=== PATIENT | male | born 1970 | race African-American/Black ===

== ENCOUNTER 2018-10-26 18:29 | Inpatient (IN) | payer OTHER ==
[2018-10-26] MEDS ORDERED: NS + KCL 40 MEQ 1,000 ML IV (18:36)
[2018-10-26] MEDS ORDERED: D10/0.45% NACL + KCL 40 MEQ 1,000 ML IV (18:36)
[2018-10-26] MEDS ORDERED: DEXTROSE 10%/0.45% NACL 1,000 ML IV (18:36)
[2018-10-26] MEDS ORDERED: SOD CHLORIDE 0.9% 1,000 ML IV (18:36)
[2018-10-26] MEDS: ONDANSETRON 4 MG INJ IV (18:40)
[2018-10-26 18:41] LABS: AADO2 Arterial 30.3 mmHg (7.0-24.0); Allen Test ACCEPTAB; Arterial Base Excess -16.6 mmol/L (-3.0-3); Arterial Blood Gas Oxygen Sat 97.9 mmHG (95.0-98.0); Arterial COHb 0.5 % (0.0-3.0); Arterial Fraction of Oxyhgb 97.1 % (93.0-99.0); Arterial HCO3 6.5 mmol/L (22.0-26.0); Arterial MetHb 0.3 % (0.0-1.5); MODE ROOM AIR; Site Left Radial
[2018-10-26 18:42] LABS: ADD MAN DIFF? NO
[2018-10-26 18:44] LABS: ABNORMAL IP MESSAGE 1; BASOPHILS % 0.3 % (0.0-2.0); EOSINOPHILS # 0.1 10^3/ul (0.0-0.5); HEMOGLOBIN 13.8 g/dl (14.0-18.0); LYMPHOCYTES # 0.3 10^3/ul (0.8-2.9); LYMPHOCYTES % 2.3 % (15.0-51.0); MEAN CORPUSCULAR HEMOGLOBIN 30.1 pg (29.0-33.0); MEAN CORPUSCULAR HGB CONC 33.7 g/dl (32.0-37.0); MEAN CORPUSCULAR VOLUME 89.5 fl (82.0-101.0); MEAN PLATELET VOLUME 10.4 fl (7.4-10.4); MONOCYTE # 1.1 10^3/ul (0.3-0.9); MONOCYTES % 7.8 % (0.0-11.0); NEUTROPHILS % 87.7 % (39.0-77.0); PLATELET COUNT 208 10^3/UL (140-415); POSITIVE DIFF @See below; RED BLOOD COUNT 4.58 10^6/ul (4.70-6.10); RED CELL DISTRIBUTION WIDTH 11.8 % (11.5-14.5)
[2018-10-26 18:44] LABS: WHITE BLOOD COUNT 13.7 10^3/ul (4.8-10.8)
[2018-10-26] MEDS ORDERED: DEXTROSE 50% 50 ML SYRINGE IV ×2 (19:00)
[2018-10-26 19:02] LABS: ETHANOL < 10.0 mg/dl (0-0)
[2018-10-26 19:03] LABS: ALANINE AMINOTRANSFERASE 17 IU/L (13-69); ALBUMIN 3.8 g/dl (3.3-4.9); ALBUMIN/GLOBULIN RATIO 1.02; ALKALINE PHOSPHATASE 122 IU/L (42-121); ANION GAP 27 (5-13); ASPARTATE AMINO TRANSFERASE 12 IU/L (15-46); BILIRUBIN,INDIRECT 0.2 mg/dl (0-1.1); BILIRUBIN,TOTAL 0.2 mg/dl (0.2-1.3); BLOOD UREA NITROGEN 43 mg/dl (7-20); CALCIUM 9.2 mg/dl (8.4-10.2); CHLORIDE 91 mmol/L (97-110); CREATININE 2.82 mg/dl (0.61-1.24); Estimated GFR 30 mL/min (>60); PHOSPHORUS 6.4 mg/dl (2.5-4.9); SODIUM 127 mmol/L (135-144); TOTAL PROTEIN 7.5 g/dl (6.1-8.1)
[2018-10-26] MEDS: SOD CHLORIDE 0.9% 800 ML IV (19:03)
[2018-10-26] MEDS: LACTATED RINGER'S 800 ML IV (19:03)
[2018-10-26 19:04] LABS: INR 1.01; PROTIME 13.4 Sec (11.9-14.9)
[2018-10-26 19:05] LABS: PARTIAL THROMBOPLASTIN TIME 29.9 Sec (23.0-35.0)
[2018-10-26 19:07] LABS: CARBON DIOXIDE 9 mmol/L (21-31)
[2018-10-26 19:08] LABS: GLUCOSE 560 mg/dl (70-220)
[2018-10-26 19:13] LABS: TROPONIN-I < 0.012 ng/ml (0.000-0.120)
[2018-10-26] MEDS: NS + KCL 30 MEQ 1,000 ML IV (19:52)
[2018-10-26] MEDS: D10/0.45% NACL + KCL 30 MEQ 1,000 ML IV (19:52)
[2018-10-26] MEDS: INSULIN REGULAR, HUMAN 100 UNIT in SOD CHLORIDE 0.9% 100 ML IV (19:57)
[2018-10-26 20:35] LABS: MODE ROOM AIR; MetHgb Venous 0.4 %; Sample Type Blood venous; Site VENOUS LINE; Venous COHb 0.6 %; Venous Fraction OxyHgb 74.6 %; Venous Oxygen Sat 75.4 mmHG (55.0-75.0); Venous Total Hemglobin 14.1 g/dl
[2018-10-26] MEDS ORDERED: ONDANSETRON 4 MG INJ IV (21:00)
[2018-10-26] MEDS ORDERED: ALBUTEROL 0.083% (NEB) 2.5 MG/3 ML AMP NEB (21:00)
[2018-10-26] MEDS ORDERED: IPRATROPIUM (NEB) 0.5 MG/2.5 ML AMP NEB (21:00)
[2018-10-26] MEDS ORDERED: BISACODYL (EC) 5 MG TAB PO (21:00)
[2018-10-26] MEDS ORDERED: DOCUSATE SODIUM 100 MG CAP PO (21:00)
[2018-10-26] MEDS: FAMOTIDINE 20 MG INJ IV (21:34)
[2018-10-26] MEDS: HEPARIN 5,000 UNIT/1 ML VIAL SC (21:35)
[2018-10-26 22:51] LABS: CREATINE KINASE 54 IU/L (23-200)
[2018-10-26 22:52] LABS: PHOSPHORUS 4.6 mg/dl (2.5-4.9)
[2018-10-26 22:52] LABS: ANION GAP 15 (5-13); BLOOD UREA NITROGEN 41 mg/dl (7-20); CALCIUM 8.8 mg/dl (8.4-10.2); CARBON DIOXIDE 16 mmol/L (21-31); CHLORIDE 101 mmol/L (97-110); CREATININE 2.19 mg/dl (0.61-1.24); Estimated GFR 40 mL/min (>60); GLUCOSE 320 mg/dl (70-220); MAGNESIUM 1.9 mg/dl (1.7-2.5); POTASSIUM 4.2 mmol/L (3.5-5.1); SODIUM 132 mmol/L (135-144)
[2018-10-26 23:09] LABS: ADD UMIC YES; UR ASCORBIC ACID NEGATIVE (NEGATIVE); UR BILIRUBIN (Dip) NEGATIVE (NEGATIVE); UR BLOOD (Dip) 2+ mg/dL (NEGATIVE); UR CLARITY CLEAR (CLEAR); UR COLOR STRAW (YELLOW); UR GLUCOSE (Dip) 3+ mg/dL (NEGATIVE); UR KETONES (Dip) 1+ mg/dL (NEGATIVE); UR LEUKOCYTE ESTERASE (Dip) NEGATIVE Leu/ul (NEGATIVE); UR NITRITE (Dip) NEGATIVE (NEGATIVE); UR RBC 1 /HPF (0-5); UR TOTAL PROTEIN (Dip) NEGATIVE (NEGATIVE); UR UROBILINOGEN (Dip) NEGATIVE (NEGATIVE); UR WBC 1 /HPF (0-5)
[2018-10-26 23:10] LABS: SODIUM,URINE RANDOM 22 mmol/L (30-90)
[2018-10-26 23:21] LABS: AMPHETAMINE/METHAMPHETAMINE Positive (NEGATIVE); BARBITURATES Negative (NEGATIVE); BENZODIAZEPINES Negative (NEGATIVE); CANNABINOIDS Negative (NEGATIVE); COCAINE Negative (NEGATIVE); OPIATES Negative (NEGATIVE)
[2018-10-26] MEDS: LORAZEPAM 2 MG INJ IV (23:59)
[2018-10-27] MEDS: METOPROLOL 5 MG INJ IV (00:41)
[2018-10-27 03:01] LABS: ANION GAP 5 (5-13); BLOOD UREA NITROGEN 37 mg/dl (7-20); CALCIUM 8.4 mg/dl (8.4-10.2); CARBON DIOXIDE 20 mmol/L (21-31); CHLORIDE 112 mmol/L (97-110); CREATININE 1.67 mg/dl (0.61-1.24); Estimated GFR 54 mL/min (>60); GLUCOSE 124 mg/dl (70-220); MAGNESIUM 1.6 mg/dl (1.7-2.5); PHOSPHORUS 1.7 mg/dl (2.5-4.9); POTASSIUM 4.5 mmol/L (3.5-5.1); SODIUM 137 mmol/L (135-144)
[2018-10-27] MEDS ORDERED: VANCOMYCIN IV PER PHARMACY XX (03:30)
[2018-10-27] MEDS: DOXYCYCLINE 100 MG in SOD CHLORIDE 0.9% 250 ML IVPB ×2 (03:49→14:47)
[2018-10-27] MEDS: MAGNESIUM SULFATE 2 GM/50 ML 50 ML IVPB (04:51)
[2018-10-27] MEDS: SOD CHLORIDE 0.9% 1,000 ML IV ×2 (04:55→18:16)
[2018-10-27] MEDS: VANCOMYCIN 1 GM in 250 ML IVPB (05:22)
[2018-10-27] MEDS: HEPARIN 5,000 UNIT/1 ML VIAL SC ×3 (05:23→21:35)
[2018-10-27] MEDS: D10/0.45% NACL + KCL 30 MEQ 1,000 ML IV ×2 (05:38→08:16)
[2018-10-27 05:42] LABS: ADD UMIC YES; UR ASCORBIC ACID NEGATIVE (NEGATIVE); UR BILIRUBIN (Dip) NEGATIVE (NEGATIVE); UR BLOOD (Dip) 1+ mg/dL (NEGATIVE); UR CLARITY CLEAR (CLEAR); UR COLOR YELLOW (YELLOW); UR GLUCOSE (Dip) 3+ mg/dL (NEGATIVE); UR KETONES (Dip) 1+ mg/dL (NEGATIVE); UR LEUKOCYTE ESTERASE (Dip) NEGATIVE Leu/ul (NEGATIVE); UR MUCUS FEW /HPF (NONE SEEN); UR NITRITE (Dip) NEGATIVE (NEGATIVE); UR RBC 3 /HPF (0-5); UR TOTAL PROTEIN (Dip) 1+ mg/dl (NEGATIVE); UR UROBILINOGEN (Dip) NEGATIVE (NEGATIVE); UR WBC 0 /HPF (0-5)
[2018-10-27 06:25] LABS: LIPASE 16 U/L (23-300)
[2018-10-27 07:02] LABS: MODE NASAL CANNULA; MetHgb Venous 0.2 %; Sample Type Blood venous; Site VENOUS LINE; Venous COHb 0.2 %; Venous Fraction OxyHgb 50.2 %; Venous Oxygen Sat 50.4 mmHG (55.0-75.0); Venous Total Hemglobin 12.4 g/dl
[2018-10-27 07:25] LABS: ANION GAP 4 (5-13); BLOOD UREA NITROGEN 31 mg/dl (7-20); CALCIUM 7.5 mg/dl (8.4-10.2); CARBON DIOXIDE 18 mmol/L (21-31); CHLORIDE 112 mmol/L (97-110); CREATININE 1.48 mg/dl (0.61-1.24); Estimated GFR > 60 mL/min (>60); GLUCOSE 393 mg/dl (70-220); PHOSPHORUS 1.8 mg/dl (2.5-4.9); POTASSIUM 5.2 mmol/L (3.5-5.1); SODIUM 134 mmol/L (135-144)
[2018-10-27] MEDS: NS + KCL 30 MEQ 1,000 ML IV (08:15)
[2018-10-27] MEDS: INSULIN REGULAR, HUMAN 100 UNIT in SOD CHLORIDE 0.9% 100 ML IV (08:51)
[2018-10-27] MEDS ORDERED: DEXTROSE 50% 50 ML SYRINGE IV ×2 (09:00)
[2018-10-27] MEDS: INSULIN HUMAN REGULAR 100 UNIT in SOD CHLORIDE 0.9% 99 ML IV (09:31)
[2018-10-27] MEDS: ACCU-CHEK XX ×14 (10:00→22:45)
[2018-10-27 10:16] LABS: ANION GAP 3 (5-13); BLOOD UREA NITROGEN 28 mg/dl (7-20); CALCIUM 7.9 mg/dl (8.4-10.2); CARBON DIOXIDE 17 mmol/L (21-31); CHLORIDE 114 mmol/L (97-110); CREATININE 1.51 mg/dl (0.61-1.24); Estimated GFR > 60 mL/min (>60); GLUCOSE 207 mg/dl (70-220); PHOSPHORUS 1.2 mg/dl (2.5-4.9); POTASSIUM 4.4 mmol/L (3.5-5.1); SODIUM 134 mmol/L (135-144)
[2018-10-27] MEDS: LACTATED RINGER'S 500 ML IV (12:52)
[2018-10-27 13:40] LABS: HEPATITIS B SURFACE ANTIGEN NEGATIVE (NEGATIVE)
[2018-10-27 13:40] LABS: THYROID STIMULATING HORMONE 0.463 MIU/L (0.465-4.680)
[2018-10-27 13:57] LABS: HEPATITIS C VIRAL ANTIBODY NEGATIVE (NEGATIVE)
[2018-10-27 14:20] LABS: ANION GAP 1 (5-13); BLOOD UREA NITROGEN 26 mg/dl (7-20); CALCIUM 7.8 mg/dl (8.4-10.2); CARBON DIOXIDE 18 mmol/L (21-31); CHLORIDE 115 mmol/L (97-110); CREATININE 1.45 mg/dl (0.61-1.24); Estimated GFR > 60 mL/min (>60); GLUCOSE 118 mg/dl (70-220); PHOSPHORUS 1.7 mg/dl (2.5-4.9); POTASSIUM 4.4 mmol/L (3.5-5.1); SODIUM 134 mmol/L (135-144)
[2018-10-27 15:43] LABS: RAPID PLASMA REAGIN REACTIVE (NR)
[2018-10-27 19:32] LABS: ANION GAP 5 (5-13); BLOOD UREA NITROGEN 25 mg/dl (7-20); CALCIUM 7.9 mg/dl (8.4-10.2); CARBON DIOXIDE 17 mmol/L (21-31); CHLORIDE 116 mmol/L (97-110); CREATININE 1.49 mg/dl (0.61-1.24); Estimated GFR > 60 mL/min (>60); GLUCOSE 139 mg/dl (70-220); PHOSPHORUS 2.4 mg/dl (2.5-4.9); POTASSIUM 4.7 mmol/L (3.5-5.1); SODIUM 138 mmol/L (135-144)
[2018-10-27] MEDS ORDERED: PENICILLIN G BENZ 2.4 MIL UNIT SYG IM (20:30)
[2018-10-27] MEDS: FAMOTIDINE 20 MG INJ IV (21:23)
[2018-10-27 22:17] LABS: HIV 1&2 ANTIBODY NEGATIVE (NEGATIVE)
[2018-10-28 00:09] LABS: ANION GAP 5 (5-13); BLOOD UREA NITROGEN 24 mg/dl (7-20); CALCIUM 8.1 mg/dl (8.4-10.2); CARBON DIOXIDE 18 mmol/L (21-31); CHLORIDE 116 mmol/L (97-110); CREATININE 1.44 mg/dl (0.61-1.24); Estimated GFR > 60 mL/min (>60); GLUCOSE 107 mg/dl (70-220); MAGNESIUM 1.9 mg/dl (1.7-2.5); PHOSPHORUS 2.3 mg/dl (2.5-4.9); POTASSIUM 4.3 mmol/L (3.5-5.1); SODIUM 139 mmol/L (135-144)
[2018-10-28] MEDS: ACCU-CHEK XX ×15 (00:18→21:30)
[2018-10-28] MEDS: SOD CHLORIDE 0.9% 1,000 ML IV ×4 (03:00→22:45)
[2018-10-28] MEDS: DOXYCYCLINE 100 MG in SOD CHLORIDE 0.9% 250 ML IVPB (03:25)
[2018-10-28] MEDS ORDERED: VANCOMYCIN 750 MG (PMX) 250 ML IVPB (04:00)
[2018-10-28 06:21] LABS: ADD MAN DIFF? NO
[2018-10-28 06:26] LABS: ABNORMAL IP MESSAGE 1; BASOPHILS % 0.3 % (0.0-2.0); EOSINOPHILS # 0.4 10^3/ul (0.0-0.5); EOSINOPHILS % 3.2 % (0.0-7.0); HEMATOCRIT 34.7 % (42.0-52.0); HEMOGLOBIN 11.7 g/dl (14.0-18.0); LYMPHOCYTES # 0.5 10^3/ul (0.8-2.9); LYMPHOCYTES % 3.9 % (15.0-51.0); MEAN CORPUSCULAR HEMOGLOBIN 30.1 pg (29.0-33.0); MEAN CORPUSCULAR HGB CONC 33.7 g/dl (32.0-37.0); MEAN CORPUSCULAR VOLUME 89.2 fl (82.0-101.0); MEAN PLATELET VOLUME 10.7 fl (7.4-10.4); MONOCYTE # 0.9 10^3/ul (0.3-0.9); MONOCYTES % 7.9 % (0.0-11.0); NEUTROPHIL # 9.8 10^3/ul (1.6-7.5); NEUTROPHILS % 83.9 % (39.0-77.0); PLATELET COUNT 174 10^3/UL (140-415); POSITIVE DIFF @See below; RED BLOOD COUNT 3.89 10^6/ul (4.70-6.10); RED CELL DISTRIBUTION WIDTH 12.3 % (11.5-14.5)
[2018-10-28 06:26] LABS: WHITE BLOOD COUNT 11.7 10^3/ul (4.8-10.8)
[2018-10-28] MEDS: HEPARIN 5,000 UNIT/1 ML VIAL SC ×3 (06:27→21:01)
[2018-10-28 06:55] LABS: PHOSPHORUS 2.4 mg/dl (2.5-4.9)
[2018-10-28 06:55] LABS: MAGNESIUM 1.8 mg/dl (1.7-2.5)
[2018-10-28 07:10] LABS: ANION GAP 4 (5-13); BLOOD UREA NITROGEN 22 mg/dl (7-20); CALCIUM 8.1 mg/dl (8.4-10.2); CARBON DIOXIDE 19 mmol/L (21-31); CHLORIDE 118 mmol/L (97-110); Estimated GFR > 60 mL/min (>60); GLUCOSE 75 mg/dl (70-220); POTASSIUM 4.3 mmol/L (3.5-5.1); SODIUM 141 mmol/L (135-144)
[2018-10-28] MEDS ORDERED: GLUCOSE GEL 15 GRAM TUBE BUCCAL (09:30)
[2018-10-28] MEDS ORDERED: GLUCOSE GEL 15 GRAM TUBE PO (09:30)
[2018-10-28] MEDS ORDERED: GLUCAGON 1 MG INJ IM (09:30)
[2018-10-28] MEDS ORDERED: DEXTROSE 50% 50 ML SYRINGE IV ×2 (09:30)
[2018-10-28 09:45] LABS: BAND NEUTROPHILS #M 4.7 10^3/ul (0.0-0.6); BAND NEUTROPHILS % (M) 41 % (0-4); BURR CELLS 2+ (0-0); EOSINOPHILS % (M) 3 % (0-7); LYMPHOCYTES #M 1.1 10^3/ul (0.8-2.9); LYMPHOCYTES % (M) 10 % (15-51); METAMYELOCYTES #M 0.4 10^3/ul (0.0-0.0); METAMYELOCYTES %M 4 % (0-0); MONOCYTE #M 0.3 10^3/ul (0.3-0.9); MONOCYTES % (M) 3 % (0-11); PLATELET ESTIMATE NORMAL; POIKILOCYTOSIS 2+ (0-0); SEG NEUT #M 5.1 10^3/ul (1.6-7.5); SEGMENTED NEUTROPHILS (M) % 39 % (39-77); SMUDGE%M 11 % (0-0)
[2018-10-28] MEDS: INSULIN GLARGINE [LANTus] (100 UNITS/ML) SYG SC ×2 (11:22→17:11)
[2018-10-28] MEDS: INSULIN ASPART [NOVOLOG] 3 ML PEN SC ×4 (11:23→21:31)
[2018-10-28] MEDS: SODIUM PHOSPHATE 15 MMOL in SOD CHLORIDE 0.9% 250 ML IVPB (14:08)
[2018-10-28 16:54] LABS: RAPID PLASMA REAGIN REACTIVE (NR)
[2018-10-28] MEDS: CREON (12k-38k-60k) 1 CAP PO (17:51)
[2018-10-28] MEDS: FAMOTIDINE 20 MG INJ IV (20:55)
[2018-10-28] MEDS: ACETAMINOPHEN 650MG/20.3ML CUP PO (21:10)
[2018-10-28 23:40] LABS: ANION GAP 2 (5-13); BLOOD UREA NITROGEN 24 mg/dl (7-20); CALCIUM 7.7 mg/dl (8.4-10.2); CARBON DIOXIDE 18 mmol/L (21-31); CHLORIDE 113 mmol/L (97-110); CREATININE 1.23 mg/dl (0.61-1.24); Estimated GFR > 60 mL/min (>60); GLUCOSE 347 mg/dl (70-220); POTASSIUM 4.2 mmol/L (3.5-5.1); SODIUM 133 mmol/L (135-144)
[2018-10-29] MEDS: INSULIN ASPART [NOVOLOG] 3 ML PEN SC ×11 (00:31→21:46)
[2018-10-29] MEDS: INSULIN GLARGINE [LANTus] (100 UNITS/ML) SYG SC ×4 (00:32→21:04)
[2018-10-29] MEDS: morphine 2 MG INJ IV ×6 (01:51→21:45)
[2018-10-29] MEDS: ACCU-CHEK XX ×2 (02:00→21:41)
[2018-10-29] MEDS: ACETAMINOPHEN 650MG/20.3ML CUP PO (03:55)
[2018-10-29 05:21] LABS: ADD MAN DIFF? NO
[2018-10-29] MEDS: HEPARIN 5,000 UNIT/1 ML VIAL SC ×3 (05:23→21:03)
[2018-10-29 05:29] LABS: BASOPHILS % 0.3 % (0.0-2.0); EOSINOPHILS # 0.5 10^3/ul (0.0-0.5); EOSINOPHILS % 4.4 % (0.0-7.0); HEMATOCRIT 30.5 % (42.0-52.0); HEMOGLOBIN 10.2 g/dl (14.0-18.0); LYMPHOCYTES # 0.9 10^3/ul (0.8-2.9); MEAN CORPUSCULAR HEMOGLOBIN 29.8 pg (29.0-33.0); MEAN CORPUSCULAR HGB CONC 33.4 g/dl (32.0-37.0); MEAN CORPUSCULAR VOLUME 89.2 fl (82.0-101.0); MEAN PLATELET VOLUME 10.6 fl (7.4-10.4); MONOCYTES % 9.3 % (0.0-11.0); NEUTROPHIL # 8.5 10^3/ul (1.6-7.5); NEUTROPHILS % 77.3 % (39.0-77.0); PLATELET COUNT 156 10^3/UL (140-415); POSITIVE DIFF @See below; RED BLOOD COUNT 3.42 10^6/ul (4.70-6.10); RED CELL DISTRIBUTION WIDTH 12.5 % (11.5-14.5)
[2018-10-29 05:59] LABS: ANION GAP 4 (5-13); BLOOD UREA NITROGEN 23 mg/dl (7-20); CALCIUM 7.7 mg/dl (8.4-10.2); CARBON DIOXIDE 18 mmol/L (21-31); CHLORIDE 111 mmol/L (97-110); CREATININE 1.18 mg/dl (0.61-1.24); Estimated GFR > 60 mL/min (>60); GLUCOSE 360 mg/dl (70-220); MAGNESIUM 1.5 mg/dl (1.7-2.5); POTASSIUM 4.3 mmol/L (3.5-5.1); SODIUM 133 mmol/L (135-144)
[2018-10-29] MEDS: SOD CHLORIDE 0.9% 1,000 ML IV ×2 (06:43→20:35)
[2018-10-29] MEDS: CREON (12k-38k-60k) 1 CAP PO ×3 (08:00→17:10)
[2018-10-29 09:37] LABS: BAND NEUTROPHILS % (M) 37 % (0-4); BASOPHIL #M 0.1 10^3/ul (0.0-0.0); BASOPHILS % (M) 1 % (0-2); BURR CELLS 2+ (0-0); EOSINOPHILS % (M) 4 % (0-7); LYMPHOCYTES #M 0.4 10^3/ul (0.8-2.9); LYMPHOCYTES % (M) 4 % (15-51); MONOCYTE #M 0.7 10^3/ul (0.3-0.9); MONOCYTES % (M) 7 % (0-11); PLATELET ESTIMATE NORMAL; POIKILOCYTOSIS 2+ (0-0); SEG NEUT #M 5.6 10^3/ul (1.6-7.5); SEGMENTED NEUTROPHILS (M) % 47 % (39-77); SMUDGE%M 40 % (0-0)
[2018-10-29] MEDS: MAGNESIUM SULFATE 3 GM in DEXTROSE 5% 100 ML IVPB (10:04)
[2018-10-29] MEDS: MAGNESIUM SULFATE 2 GM/50 ML 50 ML IVPB (12:19)
[2018-10-29 16:25] LABS: FREE T4 (FREE THYROXINE) 1.76 ng/dl (0.64-1.79)
[2018-10-29] MEDS: FAMOTIDINE 20 MG INJ IV (20:36)
[2018-10-29] MEDS: FLUTICASONE 0.05% 16 GM NAS SPRAY NASAL (20:37)
[2018-10-30] MEDS: ACCU-CHEK XX (01:57)
[2018-10-30] MEDS: morphine 2 MG INJ IV ×5 (02:21→21:59)
[2018-10-30] MEDS: SOD CHLORIDE 0.9% 1,000 ML IV ×2 (06:40→15:00)
[2018-10-30] MEDS: HEPARIN 5,000 UNIT/1 ML VIAL SC ×3 (06:44→22:02)
[2018-10-30] MEDS: CREON (12k-38k-60k) 1 CAP PO ×3 (09:10→18:20)
[2018-10-30] MEDS: FLUTICASONE 0.05% 16 GM NAS SPRAY NASAL ×2 (09:10→21:59)
[2018-10-30] MEDS: INSULIN GLARGINE [LANTus] (100 UNITS/ML) SYG SC ×2 (09:25→22:01)
[2018-10-30] MEDS: INSULIN ASPART [NOVOLOG] 3 ML PEN SC ×7 (09:25→21:00)
[2018-10-30 09:56] LABS: ADD MAN DIFF? NO
[2018-10-30 10:04] LABS: BASOPHILS % 0.3 % (0.0-2.0); EOSINOPHILS # 0.4 10^3/ul (0.0-0.5); EOSINOPHILS % 5.2 % (0.0-7.0); HEMATOCRIT 32.4 % (42.0-52.0); HEMOGLOBIN 10.7 g/dl (14.0-18.0); LYMPHOCYTES # 1.3 10^3/ul (0.8-2.9); LYMPHOCYTES % 18.7 % (15.0-51.0); MEAN CORPUSCULAR HEMOGLOBIN 30.3 pg (29.0-33.0); MEAN CORPUSCULAR VOLUME 91.8 fl (82.0-101.0); MEAN PLATELET VOLUME 10.4 fl (7.4-10.4); MONOCYTES % 13.8 % (0.0-11.0); NEUTROPHIL # 4.3 10^3/ul (1.6-7.5); NEUTROPHILS % 61.4 % (39.0-77.0); PLATELET COUNT 170 10^3/UL (140-415); POSITIVE DIFF @See below; RED BLOOD COUNT 3.53 10^6/ul (4.70-6.10); RED CELL DISTRIBUTION WIDTH 12.5 % (11.5-14.5)
[2018-10-30 10:31] LABS: ANION GAP 2 (5-13); BLOOD UREA NITROGEN 18 mg/dl (7-20); CALCIUM 7.5 mg/dl (8.4-10.2); CARBON DIOXIDE 22 mmol/L (21-31); CHLORIDE 112 mmol/L (97-110); CREATININE 1.13 mg/dl (0.61-1.24); Estimated GFR > 60 mL/min (>60); GLUCOSE 230 mg/dl (70-220); MAGNESIUM 1.5 mg/dl (1.7-2.5); PHOSPHORUS 3.1 mg/dl (2.5-4.9); POTASSIUM 4.4 mmol/L (3.5-5.1); SODIUM 136 mmol/L (135-144)
[2018-10-30] MEDS: MAGNESIUM SULFATE 4 GM/100 ML 100 ML IVPB (15:08)
[2018-10-30 16:01] LABS: CREATININE, RANDOM URINE 33 mg/dL (20-320); MICROALBUMIN/CREATININE RATIO 242 (<30)
[2018-10-30 16:09] LABS: IRON 31 ug/dl (35-150)
[2018-10-30 16:21] LABS: % IRON SATURATION 19 % SAT (22-52); TOTAL IRON BINDING CAPACITY 160 ug/dl (241-421)
[2018-10-31] MEDS: ACCU-CHEK XX (01:38)
[2018-10-31] MEDS: morphine 2 MG INJ IV ×5 (03:58→22:32)
[2018-10-31 05:50] LABS: ADD MAN DIFF? NO
[2018-10-31 05:52] LABS: ABNORMAL IP MESSAGE 1; BASOPHILS % 0.2 % (0.0-2.0); EOSINOPHILS # 0.3 10^3/ul (0.0-0.5); EOSINOPHILS % 4.1 % (0.0-7.0); HEMATOCRIT 29.7 % (42.0-52.0); HEMOGLOBIN 9.9 g/dl (14.0-18.0); LYMPHOCYTES # 1.6 10^3/ul (0.8-2.9); LYMPHOCYTES % 19.9 % (15.0-51.0); MEAN CORPUSCULAR HEMOGLOBIN 29.7 pg (29.0-33.0); MEAN CORPUSCULAR HGB CONC 33.3 g/dl (32.0-37.0); MEAN CORPUSCULAR VOLUME 89.2 fl (82.0-101.0); MEAN PLATELET VOLUME 10.3 fl (7.4-10.4); MONOCYTE # 1.6 10^3/ul (0.3-0.9); MONOCYTES % 19.3 % (0.0-11.0); NEUTROPHIL # 4.5 10^3/ul (1.6-7.5); PLATELET COUNT 177 10^3/UL (140-415); POSITIVE DIFF @See below; RED BLOOD COUNT 3.33 10^6/ul (4.70-6.10); RED CELL DISTRIBUTION WIDTH 12.5 % (11.5-14.5)
[2018-10-31 05:52] LABS: WHITE BLOOD COUNT 8.1 10^3/ul (4.8-10.8)
[2018-10-31 06:19] LABS: ANION GAP 3 (5-13); BLOOD UREA NITROGEN 20 mg/dl (7-20); CALCIUM 7.5 mg/dl (8.4-10.2); CARBON DIOXIDE 24 mmol/L (21-31); CHLORIDE 111 mmol/L (97-110); CREATININE 1.18 mg/dl (0.61-1.24); Estimated GFR > 60 mL/min (>60); GLUCOSE 240 mg/dl (70-220); MAGNESIUM 1.8 mg/dl (1.7-2.5); POTASSIUM 4.4 mmol/L (3.5-5.1); SODIUM 138 mmol/L (135-144)
[2018-10-31] MEDS: HEPARIN 5,000 UNIT/1 ML VIAL SC ×3 (06:42→21:38)
[2018-10-31] MEDS: INSULIN ASPART [NOVOLOG] 3 ML PEN SC ×7 (08:00→20:44)
[2018-10-31] MEDS: NEUTRA-PHOS 250 MG PACKET PO (08:17)
[2018-10-31] MEDS: FAMOTIDINE 20 MG TAB PO (08:17)
[2018-10-31] MEDS: CREON (12k-38k-60k) 1 CAP PO ×3 (08:17→17:43)
[2018-10-31] MEDS: FLUTICASONE 0.05% 16 GM NAS SPRAY NASAL ×2 (08:18→20:57)
[2018-10-31] MEDS: INSULIN GLARGINE [LANTus] (100 UNITS/ML) SYG SC ×2 (08:23→21:36)
[2018-10-31 16:56] LABS: FLUORESCENT TREPONEMAL AB REACTIVE (NON-REACTIVE)
[2018-10-31] MEDS: GLUCOSE GEL 15 GRAM TUBE PO (20:45)
[2018-11-01] MEDS: ACCU-CHEK XX (02:00)
[2018-11-01] MEDS: morphine 2 MG INJ IV ×5 (06:04→23:42)
[2018-11-01] MEDS: HEPARIN 5,000 UNIT/1 ML VIAL SC ×3 (06:06→21:06)
[2018-11-01 06:37] LABS: ADD MAN DIFF? NO
[2018-11-01 06:47] LABS: ABNORMAL IP MESSAGE 1; BASOPHILS % 0.5 % (0.0-2.0); EOSINOPHILS # 0.3 10^3/ul (0.0-0.5); EOSINOPHILS % 4.1 % (0.0-7.0); HEMATOCRIT 28.1 % (42.0-52.0); HEMOGLOBIN 9.3 g/dl (14.0-18.0); LYMPHOCYTES # 2.3 10^3/ul (0.8-2.9); LYMPHOCYTES % 28.5 % (15.0-51.0); MEAN CORPUSCULAR HEMOGLOBIN 29.9 pg (29.0-33.0); MEAN CORPUSCULAR HGB CONC 33.1 g/dl (32.0-37.0); MEAN CORPUSCULAR VOLUME 90.4 fl (82.0-101.0); MONOCYTE # 1.7 10^3/ul (0.3-0.9); MONOCYTES % 20.6 % (0.0-11.0); NEUTROPHIL # 3.7 10^3/ul (1.6-7.5); NEUTROPHILS % 45.3 % (39.0-77.0); PLATELET COUNT 221 10^3/UL (140-415); POSITIVE DIFF @See below; RED BLOOD COUNT 3.11 10^6/ul (4.70-6.10); RED CELL DISTRIBUTION WIDTH 12.5 % (11.5-14.5)
[2018-11-01 06:47] LABS: WHITE BLOOD COUNT 8.2 10^3/ul (4.8-10.8)
[2018-11-01 07:13] LABS: ANION GAP 3 (5-13); BLOOD UREA NITROGEN 22 mg/dl (7-20); CALCIUM 7.8 mg/dl (8.4-10.2); CARBON DIOXIDE 29 mmol/L (21-31); CHLORIDE 108 mmol/L (97-110); Estimated GFR > 60 mL/min (>60); GLUCOSE 114 mg/dl (70-220); MAGNESIUM 1.4 mg/dl (1.7-2.5); PHOSPHORUS 3.1 mg/dl (2.5-4.9); POTASSIUM 4.4 mmol/L (3.5-5.1); SODIUM 140 mmol/L (135-144)
[2018-11-01] MEDS: INSULIN ASPART [NOVOLOG] 3 ML PEN SC ×7 (08:00→21:00)
[2018-11-01] MEDS: ACETAMINOPHEN 650MG/20.3ML CUP PO (08:22)
[2018-11-01] MEDS: CREON (12k-38k-60k) 1 CAP PO ×3 (08:22→17:34)
[2018-11-01] MEDS: FLUTICASONE 0.05% 16 GM NAS SPRAY NASAL ×2 (08:22→21:04)
[2018-11-01] MEDS: FAMOTIDINE 20 MG TAB PO (08:22)
[2018-11-01] MEDS: INSULIN GLARGINE [LANTus] (100 UNITS/ML) SYG SC ×2 (08:51→21:07)
[2018-11-01] MEDS: SOD CHLORIDE 0.9% 250 ML IV (10:40)
[2018-11-01] MEDS: GLUCOSE GEL 15 GRAM TUBE PO (10:51)
[2018-11-01] MEDS: MAGNESIUM SULFATE 2 GM/50 ML 50 ML IVPB (12:48)
[2018-11-02] MEDS: ACCU-CHEK XX (02:00)
[2018-11-02 16:08] LABS: FLUORESCENT TREPONEMAL AB REACTIVE (NON-REACTIVE)
== END 2018-11-02 02:45 | disposition home or self-care (01) | DRG 638 ==
LOC: ICU 20:25 → 6WM 10-29 06:29 → E/R 18:29 → 2NE 10-30 13:52
DX: E10.10 Type 1 diabetes mellitus with ketoacidosis without coma (principal); N17.9 Acute kidney failure, unspecified; K86.1 Other chronic pancreatitis; E87.1 Hypo-osmolality and hyponatremia; R09.81 Nasal congestion; A53.0 Latent syphilis, unspecified as early or late; E86.0 Dehydration; J32.0 Chronic maxillary sinusitis; N18.9 Chronic kidney disease, unspecified; R00.0 Tachycardia, unspecified; E83.39 Other disorders of phosphorus metabolism; E11.649 Type 2 diabetes mellitus with hypoglycemia without coma; Z85.53 Personal history of malignant neoplasm of renal pelvis
CPT/HCPCS: 36415; 36600; 70450; 70480; 70486; 70540; 71045; 76775; 80048; 80053; 80307; 81001; 82043; 82533; 82550; 82607; 82803; 82962; 83036; 83540; 83690; 83735; 84100; 84300; 84439; 84443; 84484; 85025; 85610; 85730; 86592; 86703; 86803; 87040-91; 87081; 87285; 87340; 93005; 96365; 96375; 97116; 97162; 97166; 97530; 97535; 99285-25